=== PATIENT | female | born 1980 | race Caucasian/White ===

== ENCOUNTER 2017-12-01 12:44 | Day surgery (SDC) | payer OTHER ==
[2017-12-01] MEDS ORDERED: MIDAZOLAM 1 MG/ML 2 ML INJ ×2 (14:23)
[2017-12-01] MEDS ORDERED: FENTAnyl 50 MCG/ML VIAL (14:23)
== END 2017-12-01 16:25 | disposition home or self-care (01) ==
LOC: GIL 12:44
DX: R19.4 Change in bowel habit (principal); K62.89 Other specified diseases of anus and rectum
CPT/HCPCS: 45380; 84703; 88305